=== PATIENT | female | born 1945 | race Caucasian/White ===

== ENCOUNTER 2019-06-09 15:05 | Emergency (ER) | payer OTHER ==
[~2019-06-09] VITALS: Ht 162.6 cm; Wt 72.7 kg
[2019-06-09] MEDS ORDERED: ONDANSETRON ODT 4 MG ONE (15:21)
[2019-06-09] MEDS ORDERED: MECLIZINE CHEWABLE 25 MG TAB ONE (15:21)
[2019-06-09] MEDS ORDERED: MECLIZINE CHEWABLE 25 MG TAB PO ONE (15:30)
[2019-06-09] MEDS ORDERED: SODIUM CHLORIDE FLUSH 10ML SYR IVF ONE (15:30)
--- NOTE | 2019-06-09 15:35 | NUR ---
LATE NOTE ENTR DUE TO PT CARE. TASK RN, FIRST CONTACT WITH PT. Pt straight back to ED room for triage. Pt c/o intermittent dizziness with nausea. Pt resting on gurney connected to NIBP cuff, continous pulse ox monitor, and playground monitor. EKG performed at bedside. Family and friend at bedside. ED MD at bedside. Bedrails up x 2 and call light within reach. No other needs expressed.
--- NOTE | 2019-06-09 15:50 | NUR ---
PT PRESENTING TO ER FOR DIZZINESS INTERMITTENTLY FOR WEEKS BUT TODAY CAUSING NAUSEA AND INABILITY TO WALK WITH STEADY GAIT. HX OF CVA. PT DESCRIBES DIZZINESS ROOM SPINNING. DURING NEURO ASSESSMENT, NOTED LEFT EYEBROW DROOPING, SLOW RESPONSE WITH QUESTIONS, SOME COORDINATION ISSUES. STRENGTH AND SENSATION INTACT. CONNECTED TO ALL MONITORING, VSS AT THIS TIME. AT BEDSIDE. CALL LIGHT WITHIN REACH. IV PLACED, LABS DRAWN. PT MEDICATED PER MAY. WILL CONTINUE TO MONITOR
[2019-06-09 15:52] LABS: BASOPHILS # (AUTO) 0.02 x10^3/uL (0-0.1); BASOPHILS % (AUTO) 0 % (0-1); EOSINOPHILS # (AUTO) 0.13 x10^3/uL (0-0.4); EOSINOPHILS % (AUTO) 1 % (1-7); LYMPHOCYTES # (AUTO) 1.13 x10^3/uL (1-3.4); LYMPHOCYTES % (AUTO) 12 % (22-44); MD NO; MEAN CORPUSCULAR HEMOGLOBIN 30.5 pg (27.0-34.8); MEAN CORPUSCULAR HGB CONC 33.8 g/dL (32.4-35.8); MEAN CORPUSCULAR VOLUME 90.4 fL (80-100); MEAN PLATELET VOLUME 8.3 fL (7.4-10.4); MONOCYTES # (AUTO) 0.58 x10^3/uL (0.2-0.8); MONOCYTES % (AUTO) 6 % (2-9); NEUTROPHILS # (AUTO) 7.91 x10^3/uL (1.8-6.8); NEUTROPHILS % (AUTO) 81 % (42-75); PLATELET COUNT 294 x10^3/uL (130-400); RED BLOOD COUNT 4.68 x10^6/uL (3.82-5.3); RED CELL DISTRIBUTION WIDTH 13.8 % (9.6-15.2)
[2019-06-09 16:04] LABS: ALANINE AMINOTRANSFERASE 32 U/L (12-78); ALBUMIN 4.2 g/dL (3.4-5.0); ANION GAP 9 mmol/L (5-15); CALCIUM 9.2 mg/dL (8.5-10.1); CHLORIDE 102 mmol/L (98-107); CREATININE 1.09 mg/dL (0.55-1.02)
[2019-06-09 16:08] LABS: ALKALINE PHOSPHATASE 62 U/L (45-117); BILIRUBIN,TOTAL 0.9 mg/dL (0.2-1.0); TOTAL PROTEIN 7.3 g/dL (6.4-8.2); TROPONIN I < 0.015 ng/mL (0.000-0.045)
--- NOTE | 2019-06-09 16:17 | NUR ---
TAKEN FOR MRI
[2019-06-09] MEDS ORDERED: GADOTERATE 7.5 MMOL/15 ML SYR ONE (16:19)
[2019-06-09] MEDS ORDERED: ONDANSETRON ODT 4 MG PO ONE (17:00)
--- NOTE | 2019-06-09 17:11 | NUR ---
PT BACK FROM MRI. UP TO RESTROOM WITH STEADY GAIT. SOME DIZZINESS REPORTED. PT STS HAS HAD RINGING IN LEFT EAR FOR THE PAST FEW DAYS. MD TO BE UPDATED. UA COLLECTED AND SENT TO LAB
[2019-06-09 17:17] LABS: MICROSCOPIC NOT IND
[2019-06-09 17:20] VITALS: BP 168/69
[2019-06-09 17:21] LABS: CULTURE INDICATED? NO
--- NOTE | 2019-06-09 17:26 | NUR ---
ALL RESULTS BACK AT THIS TIME, CHART UP FOR RECHECK
--- NOTE | 2019-06-09 17:47 | NUR ---
MD AT BEDSIDE TO UPDATE PT AND FAMILY ON POC
== END 2019-06-09 18:11 | disposition home or self-care (01) ==
LOC: ED 16:05
DX: H81.10 Benign paroxysmal vertigo, unspecified ear (principal); R11.0 Nausea; Z86.73 Personal history of transient ischemic attack (TIA), and cerebral infarction without residual deficits; Z90.89 Acquired absence of other organs
CPT/HCPCS: 36415; 70553; 80053; 81003; 83605; 84484; 85025; 93005; 99285; A9575; Q0162; 99283